=== PATIENT | female | born 1930 | race Caucasian/White ===

== ENCOUNTER 2016-08-27 15:52 | Inpatient (IN) | payer MEDICARE ==
[~2016-08-27] VITALS: Ht 165.1 cm; Wt 79.6 kg
[~2016-08-27 15:52] MED LIST: ADVAIR 250/28 DISKU1 IH; AMBIEN10 MG PO; CRESTOR40 MG PO; DITROPAN 5MG TAB5 MG PO; EC NAPROSYN500 MG PO; FUROSEMIDE20 MG PO; GOOD SENSE ASP325 M1 PO; LEVOTHYROXIN0.075 M1 PO; LIPITOR 40MG TA40 MG PO; LISINOPRIL40 MG PO; MAPAP500 M2 PO; NORCO 325 MG-7.1 TA1 PO; POTASSIUM CHLO20 ME1 PO; RELION VEN0.09 MG/Ac INH; THEOPHYLLINE300 M2 PO; THEOPHYLLINE400 M1 PO
--- NOTE | 2016-08-27 16:36 | NUR ---
PT SWITCHED TO SWING BED STATUS AT THIS TIME, FULLY ALERT AND ORIENTED DURING NEW COMPLEX ASSESSMENT, NO NEW SKIN BREAKDOWN, SMALL REDDENED PIN POINT SCRATCHES TO BILATERAL ARMS AND LEGS THAT PATIENT REPORTS ARE FROM "SCRATCHING" AND HER FALL, WILL CONTINUE TO MONITOR, PT AMBULATORY TO BATHROOM WITH SBA X1 AND WALKER, BREATHING STABLE ON ROOM AIR, LUNGS CLEAR, HEART MURMUR PRESENT, PT WILL NO LONGER BE ON TELEMETRY MONITORING AND WE WILL REMOVE HER IV SHORTLY PER AMALIA Rock, PT AGREEING TO STAYING HERE A FEW EXTRA DAYS BUT STATES SHE WOULD LIKE TO BE HOME BY [place] IF AT ALL POSSIBLE, VERY CLEAR MINDED AND ABLE TO HOLD A CONVERSATION APPROPRIATELY, SITTING IN CHAIR UPON COMPLETION OF THIS ASSESSMENT, WATCHING TELEVISION, CALL LIGHT WITHIN REACH, JOKING WITH STAFF AND IN GOOD SPRIRITS
[2016-08-27 19:02] VITALS: BP 126/55
--- NOTE | 2016-08-27 19:30 | NUR ---
Report received from Charlotte FERRER. Patient sitting up in chair with several visitors in room. Reports needing to go to RR. Visitors leaving at this time. Assisted to bathroom with all wheeled walker, gait belt by BUILDING MAINTENANCE SUPERINTENDENT. Gait steady. Voids but misses collection container so unable to measure. Assisted back to bed. Assessment completed. Denies pain. Post void bladder scan performed. 446 ML. Denies urge to void. Reading newspaper. Bed alarm on. Call light in reach.
--- NOTE | 2016-08-27 20:20 | NUR ---
INT removed from R oj. Catheter intact. Scheduled HS medications taken whole without difficulty. Reading news paper. Denies wants or needs.
--- NOTE | 2016-08-27 21:30 | NUR ---
Up to BR. Voids. Missed collection hat once again. Assisted back to bed. Bladder scanned, Shows 649 ML of urine post void.
--- NOTE | 2016-08-27 22:30 | NUR ---
St. Cath post void 650 ML clear yellow urinary output obtained via sterile tenique. Patient tolerated well. Patient stated that she felt as if she was emptying her bladder each time she was going and felt no further urge to void after but that she does have urgency when she has to go.
[2016-08-27 23:08] VITALS: BP 125/55
--- NOTE | 2016-08-28 02:08 | NUR ---
Rests quietly with eyes closed. No signs of pain or distress. Bed alarm on. Call light in reach.
--- NOTE | 2016-08-28 05:17 | NUR ---
Awaken for V/S. Incontinent of urine, " I had a dream that I peed". ASSISTANT DIRECTOR OF SECURITY got her up to the BR and she voide another 250 ML of urine in collection container. Bladder scanned 683 ML post void residual.
--- NOTE | 2016-08-28 05:38 | NUR ---
Straight Cathed with 20 Fr. Red adam. via sterile technique. Tolerated well. 800 Ml. clear yellow urine return.
[2016-08-28 06:46] VITALS: BP 135/57
--- NOTE | 2016-08-28 08:00 | NUR ---
Report to Doreen FERRER
--- NOTE | 2016-08-28 10:41 | NUR ---
Contacted [facility] regarding retention and UTI. After chairside report to Dr. Tello, he states that pt may go home with a urinary catheter and has a consult on 09/05/16 @ 8786.
--- NOTE | 2016-08-28 13:17 | NUR ---
Pt up to BR with OT, feels urge to urinate but unable to produce.
--- NOTE | 2016-08-28 16:19 | NUR ---
Pt continues SWB loc per therapist's evaluation w/ recommendations after noting pt continues to c/o weakness and inability to urinate after having a UTI and f/c placement. PT notes pt has poor spatial awareness w/ navigating environments, running into corners and large turns. Her Tinetti score was 19/23 making her a moderate fall risk. Anticipated los is 5-10 days but will be influenced by recovery from UTI, CVA, and cardiac co-morbidities. OT notes that pt has impaired safety judgement and problem solving and currently needs CGA w/ ADL's, anticipated los is 7 days. This pt previously was driving, volunteering at the [employer], cleaning, grocery shopping and cooking w/o assist. She may benefit from HH services upon discharge to home if homebound status is recommended by therapies.
[2016-08-28 18:30] VITALS: BP 130/54
--- NOTE | 2016-08-28 19:00 | NUR ---
Report received from Doreen Oneill RN.
[2016-08-29 06:03] VITALS: BP 135/61
--- NOTE | 2016-08-29 07:07 | NUR ---
Report given to Doreen Oneill RN.
--- NOTE | 2016-08-29 07:44 | NUR ---
Pt A&O. Sitting up in bed, watching TV. Denies pain. Jones catheter intact with clear, pale yellow urine to dependant drainage.
[2016-08-29 18:18] VITALS: BP 131/51
--- NOTE | 2016-08-29 19:16 | NUR ---
Report received from Doreen FERRER. Patient sitting up in chair. A/O x4. Able to name present and future President. Denies pain. Jones patent to DD with clear yellow urine in bag. Takes snack of cookie brought in from outside source and milk from facility. Reading newspaper. Denies wants or needs at this time.
--- NOTE | 2016-08-29 20:20 | NUR ---
Scheduled HS medications taken whole without difficulty. Continues sitting up in chair, watching TV. Denies wants or needs.
--- NOTE | 2016-08-29 21:15 | NUR ---
Ambulated in negro with RELINER to nurses station and back using FWW. Gait steady. Tolerated well. Assisted to bed with bed alarm on. Call light in reach.
--- NOTE | 2016-08-30 03:17 | NUR ---
Resting quietly with eyes closed. No signs of pain or distress. Bed alarm on. Call light in reach.
[2016-08-30 06:35] VITALS: BP 158/61
--- NOTE | 2016-08-30 06:40 | NUR ---
Awaken for scheduled medication. Takes whole without difficulty. Denies pain. States slept well. Bed alarm on. Call light in reach.
--- NOTE | 2016-08-30 07:49 | NUR ---
Report to Yokasta FERRER
--- NOTE | 2016-08-30 09:00 | NUR ---
Pt pleasant this am and oriented to place, date and person and situation at this time. Pt reports that she would like to go home. Denies any discomforts. Up in recliner at bedside. Jones to DD drains yellow urine w/ mucous sediment without difficulty. Call light in reach.
--- NOTE | 2016-08-30 12:10 | NUR ---
report from Yokasta FERRER
--- NOTE | 2016-08-30 12:47 | NUR ---
Report to NABIL Zhao
--- NOTE | 2016-08-30 17:05 | NUR ---
report to Chris FERRER
--- NOTE | 2016-08-30 17:06 | NUR ---
Report received from Cece Arechiga RN.
--- NOTE | 2016-08-30 18:05 | NUR ---
Sitting up, resting in recliner. Jones catheter to dependant drainage. Pt denies having any needs or concerns. Denies pain. Reviewed call light with pt.
[2016-08-30 18:17] VITALS: BP 132/58
--- NOTE | 2016-08-30 18:22 | NUR ---
Resting in recliner awake and a/o x 3. Kathi DELI CLERK reported pt's pulse was 123 using pulse ox. I counted pt's pulse apical pulse at 92. Radial pulse 92. Pulse ox showed 122. Pt denies pain, anxiety. Anwsers questions appropiately. Pupils equal and reactive to light. Equal strength in upper and lower extremities. Hand rate supervisor equal and strong.
--- NOTE | 2016-08-30 19:02 | NUR ---
See pt shift accessment. Continues to deny pain or nausea. Resting in recliner. States she feels tired.
[2016-08-30 20:47] VITALS: BP 126/68
--- NOTE | 2016-08-30 20:53 | NUR ---
Resting in bed awake and a/o x 3. Denies pain or nausea. Denies pain with franklin catheter. Heart rate apical and radial 104. Pulse ox 117. Resp 20, Sa02 94% on room air. Temp 98.6 oral. Given chocolate pudding and gram crackers for evening snack per pt request.
--- NOTE | 2016-08-31 01:30 | NUR ---
Resting in bed, eyes closed and even respirations. Jones catheter to dependant drainage. Urine color yellow. No facial grimacing noted. Repostions self in bed. Sa02 97% on room air. Pulse 65, resp 16 even and none labored.
[2016-08-31 06:37] VITALS: BP 127/61
--- NOTE | 2016-08-31 06:45 | NUR ---
Resting in bed eyes closed even respirations. Opens eyes when spoken too. Denies pain or nausea. Denies pain from franklin catheter. Franklin catheter to dependant drainage. Color or urine is yellow. Pulse 67, respirations 18
--- NOTE | 2016-08-31 07:30 | NUR ---
Report given to Melina Song RN
--- NOTE | 2016-08-31 07:40 | NUR ---
REPORT RECEIVED FROM NABIL DAVIS
[2016-08-31 18:30] VITALS: BP 115/54
--- NOTE | 2016-08-31 19:15 | NUR ---
Received report from Melina Song RN
--- NOTE | 2016-08-31 19:20 | NUR ---
REPORT GIVEN TO NABIL DAVIS
--- NOTE | 2016-08-31 19:45 | NUR ---
Resting in recliner, a/o x 3. Answers all questions appropriately. Pupils equal and reactive to light. Equal lead web application developer in right and Lt hand. Equal strength in upper and lower extremeties. Skin warm pink and dry. Cap refill less than 3 seconds. Pt states she is passing gas and had a bowel movement today. Small amount of swelling noted in pt's right and left foot. Skin on coccyx clean, dry and intact. Skin slightly pink. Pt denies pain. States exceptable pain level is 2 out of 10. Denies pain or discomfort from franklin catheter.
--- NOTE | 2016-09-01 00:30 | NUR ---
Resting in bed, eyes closed even, none labored respirations. No facial grimacing noted. Jones catheter to dependant drainage.
--- NOTE | 2016-09-01 05:30 | NUR ---
Pt awake and a/o x 3, denies pain from franklin catheter. Denies having any needs or concerns. Franklin catheter to dependant drainage.
[2016-09-01 06:27] VITALS: BP 130/64
--- NOTE | 2016-09-01 07:45 | NUR ---
Report given to Shea Cameron RN
--- NOTE | 2016-09-01 08:10 | NUR ---
Pt up in chair eating breakfast at this time, breathing stable on room air, complex assessment completed and documented, eating independently and fully alert and oriented, denies pain, denies needs, franklin in place and draining appropriately with no kinks, denies pain at franklin sight, no new skin breakdown, pinpoint scabs on bilateral legs and arms, no worse than last shift I assessed this patient, reports they are from "itching all my dry skin, my skin is just so dry in the winter time.", call light within reach, patient remains in chair and content when this nurse left the room, will monitor throughout shift
--- NOTE | 2016-09-01 13:14 | NUR ---
Report received from Elio Kate RN and care assumed. Pt resting in chair, denies pain, and no needs or concerns at this time. Alert and oriented, call light in reach and chair alarm on.
--- NOTE | 2016-09-01 15:16 | NUR ---
Pt ambulates in halls with walker and stand-by assist. Gait steady. No further needs at this time.
--- NOTE | 2016-09-01 17:15 | NUR ---
Pt up in chair, denies needs or concerns at this time. Call light in reach, eating supper at this time.
[2016-09-01 18:26] VITALS: BP 117/59
--- NOTE | 2016-09-01 19:28 | NUR ---
Report given to Monty Quispe, BANQUET PREP COOK and care transfered at this time. Pt resting in chair, no needs or concerns at this time.
--- NOTE | 2016-09-01 19:50 | NUR ---
Report received from Reny FERRER. Patient sitting up in recliner with bilateral legs elevated. Denies pain. A/O x4. Assessment completed. Jones Cath to DD with pale yellow urine in bag. Up to BR with 1:1 assist and walker. Gait steady. Has Medium hard balls of BM in toilet. Assisted back to chair. Chair alarm applied. States takes stool softner at home. Burt PEPPER notified.
--- NOTE | 2016-09-01 23:42 | NUR ---
Requested Ambien for sleep. Woke up and had trouble getting back to sleep. "too much [place] I guess. Has not had to have sleep aid here before now, but states she does take Ambien at home at times. Ambien 5 mg taken PO now. Denies further wants or needs. Bed alarm on, call light in reach. COOK JELLY aware of medication taken.
--- NOTE | 2016-09-02 04:09 | NUR ---
Rests with eyes closed. No signs of pain or distress. Bed alarm on. Call light in reach.
--- NOTE | 2016-09-02 06:18 | NUR ---
Scheduled AM medication taken, states she slept very well last night. Awake watching news this AM. Denies pain or needs. Wishing she had physical theraphy. Wondering when she can see the Dr. so she can go home. Bed alarm on. Call light in reach.
[2016-09-02 06:27] VITALS: BP 142/59
--- NOTE | 2016-09-02 06:55 | NUR ---
Report to Rukhsana FERRER
--- NOTE | 2016-09-02 08:00 | NUR ---
Pt sitting up in chair. As this nurse enters room pt states "What do I have to do to get out of this place, I think Im well enough to go" Pt updated that swingbed meeting will be tomorrow and further discuss her plan of care. Pt agrees. Denies pain. Jones to dependent drainage. Denies any needs at this time. Fall precautions in place. Call light in reach
[2016-09-02 18:19] VITALS: BP 126/63
--- NOTE | 2016-09-02 20:00 | NUR ---
Report receive from Rukhsana FERRER. Patient sitting up in chair with legs elevated watching TV. A/O x4. Denies pain. Assessment completed. Jones patent to DD. Denies wants or needs at this time.
--- NOTE | 2016-09-03 01:58 | NUR ---
Rests with eyes closed. No signs of pain or distress. Bed alarm on. Call light in reach.
--- NOTE | 2016-09-03 06:15 | NUR ---
Awaken for scheduled AM medications. Taken without difficulty. States slept well all shift. Denies pain this AM. Last dose Levaquin taken. Bed alarm on. Call light in reach.
[2016-09-03 06:41] VITALS: BP 125/57
--- NOTE | 2016-09-03 07:30 | NUR ---
Report to Charlotte FERRER
--- NOTE | 2016-09-03 09:30 | NUR ---
Patient alert and oriented. Sitting up in the chair. Had a shower this morning. Denies pain. Denies dizziness or shortness of breath. Refused colace this morning. States that she has had multiple bowel movements and does not need it today. Patient asks "what do I have to do to get out of here?" Education provided about catheter home care. Asked patient to verbalize what she knows about the franklin catheter. Patient states "well, this thing is going to stay up inside me, and there is a bag, so I'm guessing all I'll have to do is empty the bag. Even simple simen could do that." Education and demonstration provided on purpose and use of stat lock. Patient verbalizes understanding and demonstrates how to correctly place catheter tubing into stat lock. Explained to patient that she should frequently check catheter tubing for kinks or twists. All questions answered. Patient verbalizes understanding. Indwelling urinary catheter to dependent drainage. Franklin is free flowing without kinks or twists. Securement device intact to right thigh. catheter care provided while in shower. Patient denies needs at this time. Fall precautions in place.
--- NOTE | 2016-09-03 15:30 | NUR ---
Jones catheter clamped at this time for bladder training per orders. Education provied to patient and three family members present at the bedside. Both verbalize understanding and deny questions. Patient is unable to recall teaching from earlier today.
--- NOTE | 2016-09-03 15:55 | NUR ---
Patient reports urge to void. Jones catheter unclamped at this time. 10ml of urine returned. Jones re-clamped. PT at bedside.
--- NOTE | 2016-09-03 18:20 | NUR ---
Patient calls staff to report urge to void as instructed. Jones catheter unclamped. 300ml urine drained. Catheter re-clamped. Patient is alert and oriented. Denies pain. Demonstrated for patient how to empty drainage bag. Patient verbalizes understanding and denies questions. Verbalizes understanding that she is to continue to call staff with urge to void. Denies needs. Fall precautions in place
[2016-09-03 18:22] VITALS: BP 127/53
--- NOTE | 2016-09-04 06:16 | NUR ---
Patient was being administered her morning medications, and she asked when it was time for her catheter to be unclamped. This RN passed on the question to patient's assigned nurse.
[2016-09-04 06:18] VITALS: BP 135/51
--- NOTE | 2016-09-04 07:55 | NUR ---
Patient alert and oriented. Sitting up in the chair. Denies pain. Asks "when am I going to get to go home?" Reminded patient of her appointment with Dr. Saab on 09/05/16. Patient verbalizes understanding. Indwelling urinary catheter is clamped at this time. Jones unclamped at this time due to the last time of unclamping on previous shift being unknown. 325ml urine returned. Re-clamped catheter to continue bladder training per orders. Instructed patient to call staff with urge to void. Patient verbalizes understanding. Securement device intact to right thigh. Patient denies needs at this time. Fall precautions in place.
[2016-09-04 18:18] VITALS: BP 101/43
--- NOTE | 2016-09-04 19:34 | NUR ---
Report received from Charlotte FERRER. Patient sitting up in recliner, A/O x4. Denies pain. Assessement completed. Jones Cath clamped at present time with yellow urine in chamber. Ready to watch [employer] football. Verbalizes ready to see Dr. Saab so she can go home. Denies wants or needs at this time.
--- NOTE | 2016-09-04 21:10 | NUR ---
Scheduled HS medications taken. Colace refused due to Dr. silva. tomorrow with Dr. Saab. No urge to void yet. Watching Football game on TV. Denies needs.
--- NOTE | 2016-09-04 22:00 | NUR ---
Urge to void. franklin unclamped by FLOOD CONTROL ENGINEER. 300 ML clear yellow urine drained. Franklin clamped.
--- NOTE | 2016-09-05 02:00 | NUR ---
Patient rings call light and informs TOMBSTONE POLISHER that her bed is wet. It has been just at 4 hours and patient had not called with urge to void. Catheter unclamped and allowed to drain while patient up to chair and clothing, brief and bed linen changed. "I feel like a baby, wetting my pants.". 400 ML of urinary output plus what was leaked onto bed and clothing. Patient assisted back to bed, catheter reclamped. Bed alarm on. Call light in reach.
[2016-09-05 06:19] VITALS: BP 129/52
--- NOTE | 2016-09-05 06:34 | NUR ---
Rested well all night. Cath unclamped at around 0530 when patient awaken for V/S then stated had urge to void. Remains clamped at this time. Has been able to hold 3-4 hours. Denies pain this AM. Scheduled AM medication whole without difficulty. Bed alarm on. Call light in reach.
--- NOTE | 2016-09-05 06:49 | NUR ---
Report to Rukhsana FERRER
--- NOTE | 2016-09-05 08:30 | NUR ---
Pt sitting up in chair. Reports having a good night and was able to watch the football game. Denies any pain. Jones currently clamped. Denies any urge to void at this time. Pt to have urology appt this afternoon
--- NOTE | 2016-09-05 09:51 | NUR ---
Jones has been clamped for 4 hours. Pt denies any need to void. Jones unclamped at 350 of urine voids. Pt denies any discomfort.
--- NOTE | 2016-09-05 13:12 | NUR ---
Pt leaves with son to go to Dr. Katiana silva. All paperwork sent with son
--- NOTE | 2016-09-05 13:29 | NUR ---
Gopal Mercedes RN CM, was faxed pt clinicals on 09-03-16, and states that pt is appropriate for continued SWB care with an update on 09-10-16. Discussed w/ Lola that pt sees Dr Saab, urology, on this date and has been receiving bladder training since the , starting 7 days after stopping Ditropan and starting the day after her abt was discontinued. Also discussed w/ Lola that it was anticipated that pt would be discharged on 09-10-15, that we were just waiting to hear Urologist's recommendations, to make a better discharge plan as pt would need private pay assistance to come into the home twice a day at a minimum to help her manage the F/C as well as HH services for SN/PT/OT/ST/BathAide and Kettle Skimmer to monitor the situation in the home and assist w/ a higher loc placement should it be needed if she goes home w/ a F/C. If pt will not need a F/C she may not need the additional private pay services, but will still need HH services. Pt's son Lemuel and his sisters were all at the care planning meeting on and this was all discussed w/ them. THey were given choice list and Facility care and private pay assistance list to aid in making necessary decisions for further arrangement of pt care, they are awaiting to hear Dr Saab's recommendations prior to going forward w/ any further arrangements. They have spoken to Kirsten WATSON and are aware of [facility] that can provide private pay assistance for $25 / hour. They state they may also contemplate [facility] care in a facility in [place] or [place] where pt's son and dtr live respectively. Anticipated discharge date is 09-10-16 at this time.
--- NOTE | 2016-09-05 18:30 | NUR ---
Report received from Rukhsana Metzger RN
[2016-09-05 18:32] VITALS: BP 156/81
--- NOTE | 2016-09-05 19:03 | NUR ---
Resting in recliner, a/o to self. Able to tell me she is at [facility]. Slightly confused to date and what holiday is approaching. Once reminded pt able to give date, time and what holiday is approaching. Denies pain or feeling of need to urinate. See shift accessment.
--- NOTE | 2016-09-05 21:00 | NUR ---
Pt has been awake, a/o x 3. , daughter and son-in-law at bed side visiting. Denied SOB, denied pain, or nausea.
--- NOTE | 2016-09-05 21:13 | NUR ---
Pt ambulated to the bathroom, used walker and gait belt with ambulation. Voided 200 mls of light clear yellow urine. Pt denies abd or pain with urination.
--- NOTE | 2016-09-05 21:15 | NUR ---
Bladder scan done, 206 shown on scanner. Pt denies bladder pain or pain with urination.
--- NOTE | 2016-09-05 23:15 | NUR ---
Pt has been resting in bed, eyes closed even respirations. 2300 ambulated to bathroom with one assist and use of walker. Denied bladder pain. Voided 25mls of yellow urine. Bladder scan showed 212mls. Pt denied having any needs or concerns. Instructed pt that she would need to try and urinate in 2 hours. Pt agreed.
--- NOTE | 2016-09-06 01:15 | NUR ---
Has been resting in bed, even none labored respirations. At 0110 ambulated to bathroom, voided. ENROUTE CONTROLLER reports pt missed collection hat when voiding. Bladder scan showed 283mls. Pt stated she felt she had emptied her bladder and denied pain with urination, denied bladder pain.
--- NOTE | 2016-09-06 03:15 | NUR ---
Up to bathroom with one assist, continues to use walker when ambulation. Gait steady. Pt voided 300mls of yellow urine. Bladder scan showed 134mls. Pt denies pain with urination, denies bladder pain.
[2016-09-06 05:48] VITALS: BP 157/71
--- NOTE | 2016-09-06 07:26 | NUR ---
Report given to Melina Song RN
--- NOTE | 2016-09-06 09:49 | NUR ---
Voiding schedule with post void residuals called to Gladys at Urology office. She will call back with further orders
--- NOTE | 2016-09-06 10:33 | NUR ---
Pt's son calls and states that they would like to choose [facility] and requests that [facility] meet w/ pt to see what they think they will be able to provide for pt as far as home services go. If pt should need private pay home assistance, family would like [facility] staff to help them evaluate what she will need and help them coordinate this care as well. [facility] will be faxed pt clinical records and Maylin sanchez/ Kirsten states that she will be @ [facility] between 3 and 4pm to assess pt and discuss what they can provide. Pt's son, Lemuel, is notified of this information, should family wish to be present as well. Lemuel also discusses that family is formulating a back up plan and will be looking into [facility], but that they would like to first see how pt does at home, w/ HH and if necessary private pay assistance.
--- NOTE | 2016-09-06 12:24 | NUR ---
Pt is given brochures on Personal Alarm Systems through [employer], she and her family are aware that this can be set up through [facility], and they are strongly encouraged to consider a personal alarm system for pt prior to discharge.
[2016-09-06 18:38] VITALS: BP 147/55
--- NOTE | 2016-09-06 19:00 | NUR ---
Pt awake and watching TV. Pleasant - alert to self and place - reorienteed to plan of care and date. Denies any pain. States needs up to BR. Assisted up to BR using her walker and CGA by nurse - steady gait. Voids 150 mls of concentrated yellow urine. No skin breakdown noted. Pt needed reminding of need to wipe after urinating. Back to bed using walker. Bed alarms on and call light in reach. Denies other needs at this time.
--- NOTE | 2016-09-06 19:00 | NUR ---
Report received from NABIL Milian.
--- NOTE | 2016-09-06 19:15 | NUR ---
Bladder scanned after void - 240 mls of urine.
--- NOTE | 2016-09-06 23:43 | NUR ---
Report to NABIL Dailey.
[2016-09-07 06:31] VITALS: BP 137/55
--- NOTE | 2016-09-07 07:00 | NUR ---
REPORT RECEIVED FROM JUAN FERRER.
--- NOTE | 2016-09-07 07:35 | NUR ---
PATIENT WAKES TO USE BATHROOM. SHE IS ABLE TO RISE FROM BED WITHOUT ASSISTANCE. ORIENTED TO PLACE, NAME, AND TIME. SPEECH CLEAR. GAIT STEADY WITH WALKER. PATIENT VOIDS 175CC; RESIDUAL 305CC. SHE DOES HAVE INTERMITTENT CONFUSION DURING CONVERSATION. POSITION TO CHAIR FOR BREAKFAST. CALL LIGHT IN REACH.
--- NOTE | 2016-09-07 11:00 | NUR ---
SON VISITS AND BRINGS PATIENT'S DOG. THE DOG WILL BE PUT TO REST THIS AFTERNOON WITH THE VET. PATIENT IS ACCEPTING OF THE NEWS. TEARFUL.
--- NOTE | 2016-09-07 14:08 | NUR ---
338CC POST VOID RESIDUAL. PATIENT NOTED TO BE FIRM OVER AREA OF BLADDER. SOME TENDERNESS WITH PALPATION.
--- NOTE | 2016-09-07 16:51 | NUR ---
WALKING IN HALLWAY WITH SOUP MIXER. USING WALKER, GAIT STEADY. POSTURE SLIGHTLY STOOPED.
--- NOTE | 2016-09-07 19:01 | NUR ---
Report received from Laquita Doherty
[2016-09-07 19:18] VITALS: BP 112/59
--- NOTE | 2016-09-07 19:48 | NUR ---
Temp rechecked w/ temporal thermometer - 102.6. Room warm but not any warmer than usual. Pt reports she feels fine. Denies any new urinary symptoms. "don't want anything else to develop as want to go home soon." Dr. Andres notified.
--- NOTE | 2016-09-07 20:05 | NUR ---
Pt uses call light -states "i think i need to go to the bathroom." Uses walker and assisted to BR w/ steady gait. Per DEALERSHIP GENERAL MANAGER pt voids 25 ml of concentrated urine. Returns to bed w/ assist. Straight cath completed via 12 Persian red preston using sterile techinique without difficulty w/ return of 80 mls of yellow urine and approx 20 mls w/ UA sample. UA to lab. Pt assisted to recliner at bedside per her request until time for bed.
--- NOTE | 2016-09-07 20:15 | NUR ---
Pt providing pericare after catheterization and noted to be wiping back to front. Instructed pt on females needing to wipe front to back to decrease chance of infection. - pt then demonstrates proper front to back wiping at this time.
--- NOTE | 2016-09-07 20:18 | NUR ---
Dean, Lab called in for ordered blood work. Pt informed of blood work to be done and reason for.
--- NOTE | 2016-09-07 20:19 | NUR ---
ANGIE Gavin reported to this RN that during conversation with this patient, Raven reported that she has never wiped herself after urinating. ANGIE Gavin reported that she provided some education to Raven. This RN took patient to the bathroom later that evening, and assisted patient in wiping her urethra after she urinated.
--- NOTE | 2016-09-07 21:35 | NUR ---
Report received from Yokasta Oneill RN.
--- NOTE | 2016-09-07 21:38 | NUR ---
Dr. Andres aware of UA results and pt's temp now 99.0.
--- NOTE | 2016-09-07 23:30 | NUR ---
Patient continues to sleep quietly in bed. Patient does not appear to be in any obvious distress at this time. Patient changes her position in bed independently throughout the night. Bed alarm remains armed. Bed rails up x2. Close monitoring and hourly rounds continue.
--- NOTE | 2016-09-08 04:04 | NUR ---
Patient continues to sleep quietly in bed. Patient changes her position in bed independently throughout the night. Patient does not appear to be in any obvious distress at this time. Bed alarm remains armed. Bed rails up x2.
[2016-09-08 06:33] VITALS: BP 121/45
--- NOTE | 2016-09-08 07:44 | NUR ---
Report given to Doreen Oneill RN.
--- NOTE | 2016-09-08 09:24 | NUR ---
Pt reports having pain to L shoulder this AM. Requests tylenol PO. Pt reports that Night RN had come in and straight cathed her this AM with no results. Pt states that she feels urge to urinate. Assist up to BR with 400ml urine output with 476ml residual. Pt denies urge after urination. No catheterization at this time.
--- NOTE | 2016-09-08 12:00 | NUR ---
Pt signed BIPA form for d/c on Friday09/10/15. Pt reports being excited about this and tells family that is here for lunch that she will be going home on Friday.
--- NOTE | 2016-09-08 18:28 | NUR ---
During each trip to BR today, reminded pt to wipe from front to back. Pt acknowledges understanding and brings this information up first during last few BR visits this PM.
[2016-09-08 18:32] VITALS: BP 132/72
[2016-09-09 06:25] VITALS: BP 127/52
--- NOTE | 2016-09-09 07:13 | NUR ---
REPORT RECEIVED FROM ROHAN FERRER.
--- NOTE | 2016-09-09 07:20 | NUR ---
SUPINE IN BED. AWAKE WATCHING TV. SHE REPORTS SHE WAS UP FREQUENTLY AT [facility] FOR BATHROOM NEEDS. SHE DOES NOT HAVE THE URGE TO VOID AT PRESENT. HAS NO TENDERNESS OVER BLADDER. SCD'S IN PLACE TO BILAT LE. 1+ PITTING EDEMA TO RT FOOT. CALL LIGHT REMAINS IN REACH.
--- NOTE | 2016-09-09 11:00 | NUR ---
Spoke w/ Demetri at [facility] - who reports they are still waiting insurance approval for HH services for this patient and should know this afternoon. Notified Demetri that pt plans to be discharged tomorrow afternoon, son to transport and stay with pt friday. Demetri states they do not need any further paperwork at this time. - needing d/c paperwork when available.
--- NOTE | 2016-09-09 13:24 | NUR ---
Spoke w/ Son, Michael, returning his phone call regarding plan for pt w/ HH. Explained to pt how HH services worked and recommendation that someone stay w/ pt the night pt is dismissed. Son plans to be present in pt's home Fri if HH can come out then and he will be accompanying pt to her urology appt on Friday. Son also given phone number for [employer] so he can arrange further services for in home care if needed - private pay. ([facility] staff, amanda, reported that the pt/family much contact [employer] and arrange services).
[2016-09-09 18:13] VITALS: BP 124/57
--- NOTE | 2016-09-09 19:11 | NUR ---
Report received from Bessy Oneill RN.
--- NOTE | 2016-09-09 19:35 | NUR ---
See shift accessment
--- NOTE | 2016-09-09 20:00 | NUR ---
Resting in recliner, awake and a/o x 3. Denies pain of any kind. Requesting to walk in hallway. See pt shift accessment.
--- NOTE | 2016-09-09 20:15 | NUR ---
Pt a/o x 3, ambulating in hallway per pt's request. Gait belt on nursing staff at pt's side. Using walker.
--- NOTE | 2016-09-09 21:30 | NUR ---
Chris FERRER reported that she had performed evening assessments and administered patient's evening medications.
--- NOTE | 2016-09-10 00:30 | NUR ---
Has been resting in bed, eyes closed, even and none labored respirations. At 0025 pt ambulated to bathroom without difficulty. Voided 150 mls, bladder scan showed 268. Pt denied bladder pain or pain with urination. Denied burning with urination.
--- NOTE | 2016-09-10 01:45 | NUR ---
Patient continues to rest quietly in bed. Patient changes her position in bed independently throughout the night. Patient does not appear to be in any obvious distress. Bed rails up x2. Bed alarm armed. Close monitoring and hourly rounds continue.
--- NOTE | 2016-09-10 04:16 | NUR ---
Patient continues to sleep quietly in bed. Patient does not appear to be in any obvious distress at this time. Patient changes her position in bed independently throughout the night. Bed rails up x2. Bed alarm armed. Close monitoring and hourly rounds continue.
[2016-09-10 06:20] VITALS: BP 164/71
--- NOTE | 2016-09-10 06:57 | NUR ---
Report given to Rukhsana Bass RN.
--- NOTE | 2016-09-10 08:53 | NUR ---
Pt sitting up in chair. Alert and oriented. Excited that she get to go home today. Denies any pain. Reports daughter is coming to pick her up after lunch
--- NOTE | 2016-09-10 09:35 | NUR ---
Gladys with Dr. Tello's office contacted this RN to check that pt was still getting d/c today and verify she had started on abx for appt with Dr. Tello @ 1200 tomorrow. This information was verified and affirmed.
--- NOTE | 2016-09-10 11:44 | NUR ---
Discuss w/ attending EVGENY Gutiérrez pt's discharge plan and that the following information has been faxed to Dr Saab's RECRUITER ACCOUNT MANAGERBrianna who will see pt on 09-11-15: Pt's post void residuals are reviewed and copied down and faxed to Brianna, as well as pt's 09-07-16 labs (w/ Urine Culture results), V/S record (including elevated temps - which nursing is attributing to the temperature pt prefers to keep her room), and MAR. Discussed w/ Brianna's nurse that pt would be discharged to the care of [facility] on this date and contact information given to them. Ronal's SOLAR DESIGN ENGINEER is also faxed above clinical information and is aware of pt's appointment w/ Urology. Pt's son is reassured that [facility]'s SOLAR DESIGN ENGINEER, Demetri, is aware that while he is responsible for payment for [facility], we are asking Kirsten to assess pt for this need, and if needed, to coordinated care w/ [facility] so that services do not overlap. Pt's son is also notified of pt continuing to have residuals which appear to be worse in early am after perhaps being more inactive at night, and improved through out the day. He is advised to purchase Depends and Chux for her bedding to prevent accidents and for ease in keeping bed linens clean and dry, as she has had occasional accidents during hospital stay. Pt's son states that he and his sister plan to pick his mother up around 2:30, he will spend the night w/ her and she will be admitted to at 9 am tomorrow and then he will take her to Urology appointment. On they also have appointments to visit [facility] in [place] to have a back up plan in place should she not be able to remain at home. [facility] SOLAR DESIGN ENGINEER Demetri, is notified of this and they will assist pt and family w/ these potential plans if pt fails at home. At this time though pt continues to have as her goal returning to her home environment w/ the assistance of services and family and private pay assist as needed.
--- NOTE | 2016-09-10 11:58 | NUR ---
[facility] [employer] [facility] calls to state that they will not accept [employer]. They were reminded that they had previously said that they would, but on this date they state that their corporate office will not allow them to accept pt's insurance. [facility] and [facility] are called and they state that they will accept pt's [employer] and their payroll representative, Narda will come up and meet family w/ pt prior to discharge to answer their questions about HH services and private pay personal assistance. All pt and family's questions are answered, and family receives information as to where to purchase incontinent supplies, ie., depends for day and noc use, and incontinence bed protectors as well as a website for online purchase of medical supplies. [facility]im receives pt clinicals, discharge orders and F2F order.
[2016-09-10] MEDS ORDERED: MACROBID 1100 MG/CAP PO (12:22)
[2016-09-10] MEDS ORDERED: COLACE 100100 MG/CAP PO (12:23)
[2016-09-10] MEDS ORDERED: ASPIRIN 32325 MG/TAB PO (12:23)
[2016-09-10] MEDS ORDERED: SINGULAIR PO (12:23)
--- NOTE | 2016-09-10 14:25 | NUR ---
Home Health agency in to see pt at this time
--- NOTE | 2016-09-10 15:35 | NUR ---
Pt leaves with family at this time. Prescriptions called into [facility] and to be delivered to pt home
== END 2016-09-10 15:35 | disposition home health service (06) | DRG 690 ==
LOC: MED/SURG 15:52
PROVIDERS: ADMIT Physician Assistant
DX: N39.0 Urinary tract infection, site not specified (principal); R53.81 Other malaise; R33.9 Retention of urine, unspecified; E86.0 Dehydration; F03.90 Unspecified dementia, unspecified severity, without behavioral disturbance, psychotic disturbance, mood disturbance, and anxiety; J45.909 Unspecified asthma, uncomplicated; E78.5 Hyperlipidemia, unspecified; I25.10 Atherosclerotic heart disease of native coronary artery without angina pectoris; E03.9 Hypothyroidism, unspecified; B96.20 Unspecified Escherichia coli [E. coli] as the cause of diseases classified elsewhere; Z79.82 Long term (current) use of aspirin; Z86.73 Personal history of transient ischemic attack (TIA), and cerebral infarction without residual deficits; Z91.81 History of falling; Z96.641 Presence of right artificial hip joint
CPT/HCPCS: A4351; A4353; A4354

== ENCOUNTER → 2017-05-16 | Outpatient (CLI) | payer MEDICARE ==
[~2017-05-16] MED LIST changes: +ASPIRIN 32325 MG/TAB PO; +COLACE 100100 MG/CAP PO; +MACROBID 1100 MG/CAP PO; +SINGULAIR PO
== END ==
LOC: LAB 10:06
DX: N30.20 Other chronic cystitis without hematuria (principal)

== ENCOUNTER 2017-11-02 03:32 | Emergency (ER) | payer MEDICARE ==
[~2017-11-02] VITALS: Ht 167.6 cm; Wt 83.6 kg
[2017-11-02] MEDS ORDERED: ADVAIR DISKUS1 DS2 IH (03:47)
[2017-11-02] MEDS ORDERED: ADULT ASPIRIN R81 MG PO (03:48)
[2017-11-02] MEDS ORDERED: COREG 3.123.125 MG/T PO (03:48)
[2017-11-02] MEDS ORDERED: FUROSEMIDE40 MG PO (03:49)
[2017-11-02] MEDS ORDERED: COZAAR25 M1 PO (03:49)
[2017-11-02] MEDS ORDERED: CRANBERRY FRUI425 MG PO (03:50)
[2017-11-02] MEDS ORDERED: MULTI-VITAMINS1 TA1 PO (03:51)
[2017-11-02] MEDS ORDERED: THEO-24 30300 MG/CAP PO (03:51)
[2017-11-02] MEDS ORDERED: CALCIUM 600 MG-1 TAB PO (03:52)
[2017-11-02 04:59] LABS: HEMATOCRIT 38.8 % (37.0-47.0); HEMOGLOBIN 12.6 g/dL (12.5-16.0); MEAN CELL VOLUME 92 fl (78-100); MEAN CORPUSCULAR HEMOGLOBIN 30 pg (27-31); MEAN CORPUSCULAR HGB CONC 33 g/dL (33-37); PLATELET COUNT 213 K/mm3 (130-400); RED BLOOD COUNT 4.24 M/mm3 (4.10-5.30); RED CELL DISTRIBUTION WIDTH 17.5 % (11.5-14.5); WHITE BLOOD COUNT 10.1 K/mm3 (4.8-10.8)
[2017-11-02 05:12] LABS: ALBUMIN 4.4 g/dL (3.5-5.0); BUN/CREATININE RATIO 24.3 (6.0-26.0); CALCIUM 9.8 mg/dL (8.4-10.2); LYMPHOCYTE 8 % (20-51); MONOCYTE 4 % (3-10); NEUTROPHILS 87 % (42-75); POTASSIUM 4.1 mmol/L (3.6-5.0); TOTAL BILIRUBIN 0.7 mg/dL (0.2-1.3); TOTAL PROTEIN 8.2 g/dL (6.3-8.2)
[2017-11-02 05:13] LABS: OVALOCYTES 1+
[2017-11-02 05:27] LABS: URINE APPEARANCE HAZY; URINE BILIRUBIN NEGATIVE (NEGATIVE); URINE COLOR YELLOW; URINE KETONE NEGATIVE (NEGATIVE); URINE PROTEIN(semi-quant) NEGATIVE (NEGATIVE); URINE UROBILINOGEN NORMAL (NORMAL)
[2017-11-02 05:28] LABS: URINE BLOOD 50 ery/uL (NEGATIVE); URINE LEUKOCYTE ESTERASE TRACE (NEGATIVE); URINE NITRATE POSITIVE (NEGATIVE)
[2017-11-02] MEDS ORDERED: KEFLEX250 M1 PO (06:57)
[2017-11-02 07:45] VITALS: BP 167/76
== END 2017-11-02 07:55 | disposition home or self-care (01) ==
LOC: ED 03:32
PROVIDERS: Nurse Practitioner
DX: N39.0 Urinary tract infection, site not specified (principal); S51.012A Laceration without foreign body of left elbow, initial encounter; S51.011A Laceration without foreign body of right elbow, initial encounter; W18.30XA Fall on same level, unspecified, initial encounter; Z91.81 History of falling; Y92.009 Unspecified place in unspecified non-institutional (private) residence as the place of occurrence of the external cause; I10 Essential (primary) hypertension; E03.9 Hypothyroidism, unspecified; Z79.82 Long term (current) use of aspirin
CPT/HCPCS: A4354; J0696; J7040